=== PATIENT | male | born 1945 | race Caucasian/White ===

== ENCOUNTER 2017-01-21 15:29 | Emergency (ER) | payer MEDICARE ==
[2017-01-21] MEDS ORDERED: oxyCODONE/Acetamin 5/325 MG* TAB PO ONE ×2 (16:10→18:37)
--- NOTE | 2017-01-21 16:49 | RAD ---
Indication: Left lower extremity pain. CT of the lumbar spine was obtained in the axial plane. Sagittal and coronal reconstructed images were obtained. At L5-S1 there is facet arthropathy noted. No central or foraminal stenosis is noted. No focal protrusion is identified. No definite nerve root impingement is noted. At L4-L5 disc space narrowing with degenerative disc disease and vacuum disc phenomenon is noted. Broad-based protrusion is noted. This extends into the posterior lateral aspect of the disc spaces and narrows both foramen. Facet arthropathy is noted. At L3-L4 broad-based protrusion with left posterior lateral disc protrusion narrows the left foramen and likely impinges upon the left exiting nerve root. Moderate facet hypertrophy is noted. At L2-L3 and L1-L2 the disc space appears normal without central or foraminal stenosis. At T12-L1 no disc protrusion is identified. IMPRESSION: L5-S1 facet arthropathy is noted. No central or foraminal stenosis is noted. At L4-L5 vacuum disc phenomenon with broad-based protrusion and facet arthropathy with narrowing of both intervertebral foramen. At L3-L4 broad-based protrusion with a left posterior lateral disc component which appears to impinge upon the left exiting nerve root. Mild facet arthropathy is noted. No fracture of the lumbar spine is present.
[2017-01-21] MEDS ORDERED: predniSONE TAB* 20 MG PO ONE (18:37)
[2017-01-21 19:07] VITALS: BP 189/79
--- NOTE | 2017-01-21 21:34 | ED ---
Francisco Javier Field Alok, scribed for Oli Betancourt MD on 01/21/17 at 1629 . Back Pain - HPI Summary HPI Summary: 71M presents to the ED with left flank pain radiating to the back. Pt states that this back pain which has been ongoing for the past few weeks, worsening today while in the [place]. Pt states this back pain worsens when standing or ambulating and improves in a seated position. Pt has been taking ibuprofen to manage pain. Pt also notes lower back numbness and lower extremity weakness described as fatigue. Pt denies urinary symptoms and states his BM have been normal. PMHx includes DM and chronic upper back pain different from present lower back/flank pain. Pt drinks ETOH. - History of Current Complaint Chief Complaint: EDFlankPain Stated Complaint: BACK PAIN Time Seen by Provider: 01/21/17 15:52 Hx Obtained From: Patient Onset/Duration: Lasting Weeks, Still Present Onset/Duration: Started Weeks Ago, Atraumatic, Still Present, Worse Since - Today Timing: Constant Back Pain Location: Is Discrete @ - left flank, Radiates To - back Severity Initially: Moderate Severity Currently: Moderate Pain Intensity: 10 Pain Scale Used: 0-10 Numeric Aggravating Symptom(s): Movement, Walking Alleviating Symptom(s): Position, OTC Meds - ibuprofen Associated Signs And Symptoms: Positive: Weakness, Numbness, Flank Pain. Negative: Bladder Incontinence, Bowel Incontinence - Allergies/Home Medications Allergies/Adverse Reactions: Allergies Allergy/AdvReac Type Severity Reaction Status Date / Time No Known Allergies Allergy Verified 03/17/13 05:24 PMH/Surg Hx/FS Hx/Imm Hx Endocrine/Hematology History: Reports: Hx Diabetes Infectious Disease History: No Infectious Disease History: Denies: Traveled Outside the [place] in Last 30 Days - Family History Known Family History: Negative: Cardiac Disease, Hypertension, Diabetes - Social History Occupation: Employed Full-time Lives: With Family Alcohol Use: Daily Alcohol Amount: 4 mixed drinks/day Substance Use Type: Reports: None Smoking Status (MU): Never Smoked Tobacco Review of Systems Negative: Fever Positive: Other - Negative: Constipation. Negative: Diarrhea Positive: no symptoms reported - urinary, flank pain Positive: Other - back pain Positive: Weakness All Other Systems Reviewed And Are Negative: Yes Physical Exam Triage Information Reviewed: Yes Vital Signs On Initial Exam: Initial Vitals Temp Pulse Resp BP Pulse Ox 98.9 F 101 20 195/103 95 01/21/17 15:32 01/21/17 15:32 01/21/17 15:32 01/21/17 15:32 01/21/17 15:32 Vital Signs Reviewed: Yes Appearance: Positive: Well-Appearing, No Pain Distress Skin: Positive: Warm, Skin Color Reflects Adequate Perfusion, Dry Head/Face: Positive: Normal Head/Face Inspection Eyes: Positive: Normal ENT: Positive: Normal ENT inspection Neck: Positive: Supple, Nontender Respiratory/Lung Sounds: Positive: Clear to Auscultation, Breath Sounds Present Cardiovascular: Positive: RRR Abdomen Description: Positive: Nontender, Soft Bowel Sounds: Positive: Present Musculoskeletal: Positive: Other - Tender left lumbar area Neurological: Positive: Normal Psychiatric: Positive: Normal, Affect/Mood Appropriate - [place] Coma Scale Coma Scale Total: 15 Diagnostics - Vital Signs Vital Signs Temp Pulse Resp BP Pulse Ox 01/21/17 16:00 93 19 96 01/21/17 15:52 94 20 97 01/21/17 15:50 190/87 01/21/17 15:32 98.9 F 101 20 195/103 95 - Laboratory Lab Statement: Any lab studies that have been ordered have been reviewed, and results considered in the medical decision making process. - CT Lumbar Spine CT CT Interpretation: Positive (See Comments) - IMPRESSION: L5-S1 facet arthropathy is noted. No central or foraminal stenosis is noted. At L4-L5 vacuum disc phenomenon with broad-based protrusion and facet arthropathy with narrowing of both intervertebral foramen. At L3-L4 broad-based protrusion with a left posterior lateral disc component which appears to impinge upon the left exiting nerve root. Mild facet arthropathy is noted. No fracture of the lumbar spine is present. CT Interpretation Completed By: Radiologist Back Pain Course/Dx - Course Course Of Treatment: Mr. Bishop has had problem with his bsck chronically but in the last couple of weeks and especially today it has gotten much worse. He has sciatic signs and symptoms on the left and a CT shows disc disease. He is urinating and moving his bowels OK, his legs are strong and he got a lot of relief from pain meds here. I will treat him with a medrol dose pack and percocet and refer him for F/U. - Diagnoses Provider Diagnoses: Sciatica, Lumbar disc herniation Discharge - Discharge Plan Condition: Stable Disposition: HOME Prescriptions: Methylprednisolone [Medrol Dosepak 4 MG*] 4 mg PO .SEE MAXIMO INSTRUCTION #1 tab oxyCODONE/Acetamin 5/325 MG* [Percocet 5/325 TAB*] 1 tab PO Q6H PRN #20 tab MDD 4 PRN Reason: Pain Patient Education Materials: Lumbar Disc Herniation (ED) Referrals: Subha Win, [employer]SEM[employer]ER [Primary Care Provider] - The documentation as recorded by the Francisco Javier mendoza Alok accurately reflects the service I personally performed and the decisions made by , Oli Betancourt MD.
== END 2017-01-21 19:07 | disposition home or self-care (01) ==
LOC: ED 15:29
DX: M54.30 Sciatica, unspecified side (principal); M51.26 Other intervertebral disc displacement, lumbar region; R10.84 Generalized abdominal pain; R53.1 Weakness
CPT/HCPCS: 72131; 99283; A9270-GY; J7512

== ENCOUNTER 2017-01-31 15:25 | Inpatient (IN) | payer MEDICARE ==
[2017-01-31] MEDS ORDERED: Lidocaine 1%* 5 ML VIAL ONE (17:05)
[2017-01-31] MEDS ORDERED: Lidocaine 1% INJ* 10 MG/ML 30 ML SDV ONE (17:06)
[2017-01-31] MEDS ORDERED: Tetan/Diph/Pertus SYR(Tdap)* 0.5 ML SYR(BOOSTRIX) use SYR IM ONE (18:53)
[2017-01-31] MEDS ORDERED: metFORMIN* 500 MG TAB PO ONE (18:54)
[2017-01-31] MEDS ORDERED: glipiZIDE TAB* 5 MG PO ONE (18:54)
--- NOTE | 2017-01-31 19:03 | ED ---
Elan Field Benjamin, scribed for Oli Betancourt MD on 01/31/17 at 1617 . Psychiatric Complaint - HPI Summary HPI Summary: 71yo male BIBA after a suicidal attempt. Pt cut both of his wrists and forearms multiple times with a bar manager knife. Bleeding is controlled when seen. Pt is right handed. Last tetanus shot date is unknown. Fingers on both hands have full ROM intact. Pt denies prior attempts. - History Of Current Complaint Chief Complaint: EDMentalHealth Time Seen by Provider: 01/31/17 15:47 Hx Obtained From: Patient Onset/Duration: Sudden Onset, Lasting Minutes, Resolved Timing: Minutes Severity Initially: Moderate Severity Currently: Moderate Character: Depressed Aggravating Factor(s): Recent Stress Alleviating Factor(s): Nothing Associated Signs And Symptoms: Positive: Negative Has Suicidal: Reports: Thoughts, With A Plan - cutting wrists - Allergies/Home Medications Allergies/Adverse Reactions: Allergies Allergy/AdvReac Type Severity Reaction Status Date / Time No Known Allergies Allergy Verified 03/17/13 05:24 Home Medications: Home Medications Carisoprodol TAB* [Soma TAB*] 350 mg PO Q6H PRN 01/31/17 [History Confirmed ] glipiZIDE TAB* [Glucotrol TAB*] 5 mg PO BID 01/31/17 [History Confirmed 01/31/17 ] metFORMIN* [Glucophage 500 MG TAB *] 1,000 mg PO BID 01/31/17 [History Confirmed 01/31/17] PMH/Surg Hx/FS Hx/Imm Hx Endocrine/Hematology History: Reports: Hx Diabetes Infectious Disease History: No Infectious Disease History: Denies: Traveled Outside the US in Last 30 Days - Family History Known Family History: Negative: Cardiac Disease, Hypertension, Diabetes - Social History Occupation: Employed Full-time Lives: With Family Alcohol Use: Daily Alcohol Amount: 4 mixed drinks/day Substance Use Type: Reports: None Smoking Status (MU): Never Smoked Tobacco Review of Systems Constitutional: Negative Eyes: Negative ENT: Negative Cardiovascular: Negative Respiratory: Negative Gastrointestinal: Negative Genitourinary: Negative Musculoskeletal: Negative Positive: Other - multiple lacerations in bilateral wrists and forearms. Neurological: Negative Positive: Depressed, Other - SI with plan All Other Systems Reviewed And Are Negative: Yes Physical Exam Triage Information Reviewed: Yes Vital Signs On Initial Exam: Initial Vitals Temp Pulse Resp BP Pulse Ox 98.5 F 100 17 200/93 97 01/31/17 15:28 01/31/17 15:28 01/31/17 15:28 01/31/17 15:28 01/31/17 15:28 Vital Signs Reviewed: Yes Appearance: Positive: Well-Appearing, No Pain Distress, Well-Nourished Skin: Positive: Warm, Skin Color Reflects Adequate Perfusion, Dry, Other - Multiple lacerations to the bilateral volar wrists. One to the dorsum of both hands. Head/Face: Positive: Normal Head/Face Inspection Eyes: Positive: Normal ENT: Positive: Normal ENT inspection Neck: Positive: Supple, Nontender Respiratory/Lung Sounds: Positive: Clear to Auscultation, Breath Sounds Present Cardiovascular: Positive: RRR Abdomen Description: Positive: Nontender, Soft Bowel Sounds: Positive: Present Musculoskeletal: Positive: Normal, Strength/ROM Intact Neurological: Positive: Sensory/Motor Intact, Alert, Oriented to Person Place, Time, CN Intact II-III, NV Bundle Intact Distally - Neurovascular motor intact. - [place] Coma Scale Coma Scale Total: 15 Procedures - Laceration/Wound Repair 1 Location: upper extremity Description: Linear Anesthesia: Local, 2.0%, Lido Length, Depth and Shape: He has multiple lacerations of both volar wrists totaling about 40 cms. They are all through to the sub Q tissue but not deeper. Betadine Prep?: Yes Irrigated w/ Saline (ccs): 500 Laceration/Wound Explored: clean Closure: Single Layer Suture Type: Nylon - 5.0 a mix of verticle mattress and simple interrupted Number of Sutures: 41 Layer Closure?: No Diagnostics - Vital Signs Vital Signs Temp Pulse Resp BP Pulse Ox 01/31/17 15:33 17 01/31/17 15:31 200/93 01/31/17 15:28 98.5 F 100 17 200/93 97 - Laboratory Lab Statement: Any lab studies that have been ordered have been reviewed, and results considered in the medical decision making process. - EKG 1556 Cardiac Rate: Tachycardia - 102bpm EKG Rhythm: Sinus Tachycardia ST Segment: Normal Ectopy: None Course/Dx - Course Course Of Treatment: Mr. Bishop presented after cutting his wrists with a bar manager knife. He admits that something bad happened today but won't say what. His wounds were repaired and he is awaiting MHE. - Differential Dx/Clinical Impression Provider Diagnosis: Laceration of wrist, left, Laceration of wrist, right, Situational depression Discharge - Discharge Plan Condition: Stable Disposition: OTHER Discharge Disposition Comment: Signed out at change of shift The documentation as recorded by the Elan mendoza Benjamin accurately reflects the service I personally performed and the decisions made by me, Oli Betancourt MD.
[2017-01-31 19:26] LABS: Hematocrit 46 % (42-52); Hemoglobin 15.3 g/dl (14.0-18.0); Mean Corpuscular HGB Conc 33 g/dl (31-36); Mean Corpuscular Hemoglobin 31 pg (27-31); Mean Corpuscular Volume 92 fL (80-94); Mean Platelet Volume 7 um3 (7.4-10.4); Red Blood Count 4.99 10^6/ul (4.0-5.4); Red Cell Distribution Width 13 % (10.5-15); White Blood Count 11.7 10^3/ul (3.5-10.8)
[2017-01-31] MEDS ORDERED: LORazepam TAB(*) 1 MG PO ONE (19:38)
[2017-01-31] MEDS ORDERED: LORazepam TAB(*) 1 MG ONE ×2 (19:39→22:35)
[2017-01-31 19:43] LABS: ALT 22 U/L (7-52); AST 11 U/L (13-39); Albumin 3.7 g/dL (3.2-5.2); Alkaline Phosphatase 54 U/L (34-104); Anion Gap 7 mmol/L (2-11); BUN/Creatinine Ratio 20.6 (8-20); Blood Urea Nitrogen 14 mg/dL (6-24); CO2 Carbon Dioxide 26 mmol/L (22-32); Calcium 9.4 mg/dL (8.6-10.3); Chloride 99 mmol/L (101-111); EGFR African American 148.7 (>60); EGFR Non-African American 115.6 (>60); Globulin 3.1 g/dL (2-4); Glucose 196 mg/dL (70-100); Potassium 3.8 mmol/L (3.5-5.0); Sodium 132 mmol/L (133-145); Total Protein 6.8 g/dL (6.4-8.9)
[2017-01-31 20:49] LABS: Acetaminophen < 15 mcg/mL; Alcohol < 10 mg/dL (<10); Salicylate < 2.50 mg/dL (<30)
[2017-01-31 20:58] LABS: TSH (Thyroid Stimulating Horm) 0.84 mcIU/mL (0.34-5.60)
[2017-01-31] MEDS ORDERED: Ibuprofen TAB* 600 MG PO ONE (21:13)
[2017-01-31 21:37] LABS: Urine Bilirubin 2+ (Negative); Urine Glucose 3+(>=500 mg/dL) (Negative); Urine Nitrite Negative (Negative)
[2017-01-31 21:57] LABS: Benzodiazepine Urine Screen None Detected (None Detect)
[2017-01-31] MEDS ORDERED: diPHENhydraMINE IV* 50 MG/ML 1 ml VIAL (BENADRYL) IM ONE (22:00)
[2017-01-31] MEDS ORDERED: Haloperidol INJ IV/IM* 5 MG/ML AMP IM ONE (22:00)
[2017-01-31] MEDS ORDERED: LORazepam INJ* 2 MG/ML 1 ML VIAL IM ONE (22:00)
[2017-01-31] MEDS ORDERED: oxyCODONE/Acetamin 5/325 MG* TAB ONE (22:35)
[2017-01-31] MEDS ORDERED: Carisoprodol TAB* 350 MG ONE (22:36)
[2017-01-31] MEDS ORDERED: Nicotine GUM* 2 MG PO PRN (22:37)
[2017-01-31] MEDS ORDERED: Mouth Piece, Nicotine* 1 EACH CARTRIDGE INH SCH (22:37)
[2017-01-31] MEDS ORDERED: Al Hydrox/Mg Hydrox/Simet LIQ* 30 ML UDC PO PRN (22:37)
[2017-01-31] MEDS ORDERED: Nicotine Inhaler* 10 MG AMP INH PRN (22:37)
[2017-01-31] MEDS ORDERED: Acetaminophen TAB* 650 MG PO Q4P PAIN PO PRN (23:00)
[2017-01-31] MEDS ORDERED: Thiamine IV* 100 MG IM X 1 ON ADMISSION IM ONE (23:00)
[2017-01-31] MEDS ORDERED: LORazepam PO 0-6 for WAM protocol PO SCH (23:00)
[2017-01-31] MEDS ORDERED: Al Hydrox/Mg Hydrox/Simet LIQ* 30 ML Q2P GAST DISTRESS PO PRN (23:00)
[2017-01-31] MEDS ORDERED: LORazepam IM 0-6 mg for WAM protocol IM SCH (23:00)
--- NOTE | 2017-02-01 05:00 | ED ---
Francisco Javier Field Alok, scribed for Srini Ramirez MD on 01/31/17 at 2113 . Progress - Progress Note Progress Note: Patient medically clear for MHU evaluation @ 2111 Patient has historically had an elevated blood pressure since 2012 and is on no medications for it. - Consult/PCP Time Called: 20:53 Course/Dx - Course Course Of Treatment: Patient was signed out by Dr. Betancourt at shift change. Dr. Hammond notes: "Mr. Bishop presented after cutting his wrists with a fixed capital clerk knife. He admits that something bad happened today but won't say what. His wounds were repaired and he is awaiting MHE". Patient medically clear for MHU evaluation @ 2111. Patient has historically had an elevated blood pressure since 2012 and is on no medications for it. - Diagnoses Provider Diagnoses: Laceration of wrist, left, Laceration of wrist, right, Situational depression The documentation as recorded by the marieibeFrancisco Javier Alok accurately reflects the service I personally performed and the decisions made by me, Srini Ramirez MD.
[2017-02-01] MEDS: Vitamin THERAPEUTIC TAB PO SCH (08:45)
[2017-02-01] MEDS: Folic Acid TAB* 1 MG DAILY PO SCH (08:45)
[2017-02-01] MEDS: metFORMIN* 1,000 MG TAB PO SCH ×2 (08:45→16:58)
[2017-02-01] MEDS: glipiZIDE TAB* 5 MG PO SCH ×2 (08:45→19:54)
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
[2017-02-01] MEDS: oxyCODONE/Acetamin 5/325 MG* TAB PO PRN (19:53)
[2017-02-01] MEDS: Carisoprodol TAB* 350 MG PO PRN (19:55)
[2017-02-01] MEDS ORDERED: LORazepam TAB(*) 1 MG PO ONE (21:15)
[2017-02-02] MEDS: Vitamin THERAPEUTIC TAB PO SCH (08:48)
[2017-02-02] MEDS: Folic Acid TAB* 1 MG DAILY PO SCH (08:48)
[2017-02-02] MEDS: glipiZIDE TAB* 5 MG PO SCH ×2 (08:48→21:38)
[2017-02-02] MEDS: metFORMIN* 1,000 MG TAB PO SCH ×2 (08:48→16:55)
[2017-02-02] MEDS: oxyCODONE/Acetamin 5/325 MG* TAB PO PRN ×3 (08:51→23:25)
--- NOTE | 2017-02-02 16:03 | PN ---
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 "Every day I spend in here gets me deeper in debt." He believes that he is still together with his girlfriend, Teresa , and tells me that he last saw her "4 or 5 days ago," when they just saw each other yesterday here on the [facility]. He has obvious deficits in attention and delayed recall. He is mildly irritable, telling me that he did not like the music being played by the visiting harp player last night. "If nobody had been looking I would have broken her hands." Despite his episodes of confusion and tachycardia, he declines offered lorazepam. Objective - Appearance Appearance: Well Developed/Nourished Dysmorphic Features: No Hygiene: Normal Grooming: Fairly Well Kept - Behavior Psychomotor Activities: Normal Exhibits Abnormal Movement: No - Attitude and Relatedness Attitude and Relatedness: Irritable Eye Contact: Fair - Speech Quality: Unpressured Latencies: Normal Quantity: Appropriate - Mood Patient's Decription of Mood: "Fine" - Affect Observed Affect: Constricted Affect Consistent with: Dysphoria - Thought Process Patient's Thought Process: Circumstantial Thought Content: No Passive Wish, No Suicidal Planning, No Homicidal Ideation, No Paranoid Ideation - Sensorium Experiencing Hallucinations: No, Sensorium is Clear Type of Hallucinations: Visual: No, Auditory: No, Command: No - Level of Consciousness Level of Consciousness: Alert Orientation: Yes Intact, Yes Orientated to Time, Yes Orientated to Place, Yes Orientated to Person - Impulse Control Impulse Control: Poor - Insight and Judgement Insight and Judgement: Impaired - Group Participation Particating in Group Activities: Yes - Medication Management Medication Management Adherence: Yes Assessment - Assessment Merits Inpatient Hospitalization: For Immediate Safety, For Stabilization Inpatient DSM-IV Dx: MDD, single episode, severe without psychotic features Clinical Impression: 71 y.o. , white male with a history of chronic alcohol misuse brought in by police on legal status after cutting himself on both forearms in a suicide attempt and requiring 41 sutures. His girlfriend reports that he continues to make statements to the effect that he will complete the suicide following discharge from the hospital. Plan - Plan Treatment Plan: Name: CORTEZ GAYTAN Birthdate: 1945 [id number] The patient is declining antidepressant therapy and demanding d/c. He is unaware that his girlfriend intends to end the relationship and kick him out of her house in [place], rendering him homeless. Contact with his family indicates that they cannot accommodate having him move in with them. Continue to offer milieu care on a locked, secured setting. Continued Medication Management: Consider Medication Medications: Current Medications Acetaminophen (Tylenol Tab*) 650 mg PO Q4H PRN PRN Reason: PAIN or TEMP > 101 F Al Hydrox/Mg Hydrox/Simethicone (Maalox Plus*) 30 ml PO Q2H PRN PRN Reason: PRN GASTRIC DISTRESS Carisoprodol (Soma Tab*) 350 mg PO Q6H PRN PRN Reason: PAIN Last Admin: 02/01/17 19:55 Dose: 350 mg Folic Acid (Folvite Tab*) 1 mg PO DAILY [facility] Last Admin: 02/02/17 08:48 Dose: 1 mg Glipizide (Glucotrol Tab*) 5 mg PO BID [facility] Last Admin: 02/02/17 08:48 Dose: 5 mg Metformin HCl (Glucophage*) 1,000 mg PO 0800,1700 [facility] Last Admin: 02/02/17 08:48 Dose: 1,000 mg Multivitamins (Theragran Tab*) 1 tab PO DAILY [facility] Last Admin: 02/02/17 08:48 Dose: 1 tab Oxycodone/Acetaminophen (Percocet 5/325 Tab*) 1 tab PO Q6H PRN PRN Reason: PAIN Last Admin: 02/02/17 08:51 Dose: 1 tab - Discharge Plan Discharge Plan: Inpatient Hospitalization
[2017-02-02] MEDS: Acetaminophen TAB* 325 MG PO PRN (22:16)
[2017-02-03] MEDS: Carisoprodol TAB* 350 MG PO PRN ×3 (03:06→21:55)
[2017-02-03] MEDS: Acetaminophen TAB* 325 MG PO PRN ×2 (03:07→18:21)
[2017-02-03] MEDS: Vitamin THERAPEUTIC TAB PO SCH (08:27)
[2017-02-03] MEDS: Folic Acid TAB* 1 MG DAILY PO SCH (08:27)
[2017-02-03] MEDS: metFORMIN* 1,000 MG TAB PO SCH ×2 (08:27→17:05)
[2017-02-03] MEDS: glipiZIDE TAB* 5 MG PO SCH ×2 (08:27→17:05)
[2017-02-03] MEDS: oxyCODONE/Acetamin 5/325 MG* TAB PO PRN ×3 (08:28→21:27)
--- NOTE | 2017-02-03 17:43 | PN ---
Subjective - Subjective Subjective: Dale endorses reduced distress level, improving sleep and mood and absence of suicidal ideation. He agrees reluctantly to a trial of mirtazapine after hearing of the indications, risks, benefits and alternatives. He reports good visit with girlfriend, notes that she may be embarrassed that "her boyfriend is in the psych booker." Per staff, he is visible in the milieu and adherent to routines. Objective - Appearance Appearance: Healthy Appearing Dysmorphic Features: No Hygiene: Normal Grooming: Fairly Well Kept - Behavior Psychomotor Activities: Normal Exhibits Abnormal Movement: No - Attitude and Relatedness Attitude and Relatedness: Superficially Cooperative Eye Contact: Fair - Speech Quality: Unpressured Latencies: Normal Quantity: Appropriate - Mood Patient's Decription of Mood: better - Affect Observed Affect: Constricted Affect Consistent with: Dysphoria - Thought Process Patient's Thought Process: Coherent, Impoverished Thought Content: No Passive Wish, No Suicidal Planning, No Homicidal Ideation, No Paranoid Ideation - Sensorium Experiencing Hallucinations: No, Sensorium is Clear - Level of Consciousness Level of Consciousness: Alert Orientation: Yes Intact - Impulse Control Impulse Control: Intact - Insight and Judgement Insight and Judgement: Poor - Group Participation Particating in Group Activities: Yes - Medication Management Medication Management Adherence: Yes Assessment - Assessment Merits Inpatient Hospitalization: Consolidate Improvements, For Discharge Planning Inpatient DSM-IV Dx: MDD, single episode, severe without psychotic features Clinical Impression: Stabilizing in the structured setting, with continued poor insight, agreeable to trial of Remeron, he needs continued admission for stabilization. Plan - Plan Treatment Plan: Name: CORTEZ GAYTAN Birthdate: 1945 [id number] Medications: Current Medications Acetaminophen (Tylenol Tab*) 650 mg PO Q4H PRN PRN Reason: PAIN or TEMP > 101 F Last Admin: 02/03/17 03:07 Dose: 650 mg Al Hydrox/Mg Hydrox/Simethicone (Maalox Plus*) 30 ml PO Q2H PRN PRN Reason: PRN GASTRIC DISTRESS Carisoprodol (Soma Tab*) 350 mg PO Q6H PRN PRN Reason: PAIN Last Admin: 02/03/17 15:53 Dose: 350 mg Folic Acid (Folvite Tab*) 1 mg PO DAILY [facility] Last Admin: 02/03/17 08:27 Dose: 1 mg Glipizide (Glucotrol Tab*) 5 mg PO 0900,1700 [facility] Last Admin: 02/03/17 17:05 Dose: 5 mg Metformin HCl (Glucophage*) 1,000 mg PO 0800,1700 [facility] Last Admin: 02/03/17 17:05 Dose: 1,000 mg Multivitamins (Theragran Tab*) 1 tab PO DAILY [facility] Last Admin: 02/03/17 08:27 Dose: 1 tab Oxycodone/Acetaminophen (Percocet 5/325 Tab*) 1 tab PO Q6H PRN PRN Reason: PAIN Last Admin: 02/03/17 15:11 Dose: 1 tab - Discharge Plan Discharge Plan: Outpatient Follow Up Outpatient Program: [facility]
[2017-02-04] MEDS: Vitamin THERAPEUTIC TAB PO SCH (08:02)
[2017-02-04] MEDS: Folic Acid TAB* 1 MG DAILY PO SCH (08:02)
[2017-02-04] MEDS: glipiZIDE TAB* 5 MG PO SCH ×2 (08:02→16:13)
[2017-02-04] MEDS: metFORMIN* 1,000 MG TAB PO SCH ×2 (08:02→16:13)
[2017-02-04] MEDS: oxyCODONE/Acetamin 5/325 MG* TAB PO PRN ×3 (08:04→19:16)
[2017-02-04] MEDS: Carisoprodol TAB* 350 MG PO PRN ×2 (14:07→19:16)
[2017-02-04] MEDS: Acetaminophen TAB* 325 MG PO PRN ×2 (16:13→21:10)
[2017-02-04] MEDS: Mirtazapine TAB* 15 MG PO PRN (21:10)
[2017-02-05] MEDS: Carisoprodol TAB* 350 MG PO PRN ×4 (01:48→23:48)
[2017-02-05] MEDS: oxyCODONE/Acetamin 5/325 MG* TAB PO PRN ×4 (01:49→23:49)
[2017-02-05] MEDS: glipiZIDE TAB* 5 MG PO SCH ×2 (08:07→16:50)
[2017-02-05] MEDS: Folic Acid TAB* 1 MG DAILY PO SCH (08:07)
[2017-02-05] MEDS: Vitamin THERAPEUTIC TAB PO SCH (08:07)
[2017-02-05] MEDS: metFORMIN* 1,000 MG TAB PO SCH ×2 (08:07→16:50)
--- NOTE | 2017-02-05 12:41 | PN ---
Subjective - Subjective Service Type: [id number] Hosp care 15 min low complexity Subjective: Prior to speaking with Dale this morning I fielded a phone call from his now ex- girlfriend, Teresa Zapata ([phone]). She states that she officially broke up with him over the weekend and is now packing up his belongings to bring them to his nephew, Leana in [place], [place]. She further reports that she no longer wants to be the main source of support and is referring us to the patient's sister, Karen. "It's over and I've been told by people supporting me that I should get a restraining order to keep him away from me and my property. I don't think he would do anything to hurt me, but then again, I didn't think he would ever do anything to hurt himself and look where he is now!" She asks for assurances that I will give her 3 days notice before his discharge, which I cannot commit to. Later, Dale is seen along with DONOVAN Paul. He has made suicidal statements to staff that he would walk in front of a car after discharge as recently as this morning. Asked for clarification, he responds "I have nothing. It all hit me yesterday. 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 Suicide would be the easy way out. It be over...the best thing for everyone." I ask if he's contacted his sister or nephew but he reports that his phone isn't working so he can't get their numbers. He is estranged from his children and they are not able to support him. I discuss the possibility and potential utility of an antidepressant medication but he declines this. "I' m on enough medication already." Objective - Appearance Appearance: Well Developed/Nourished Dysmorphic Features: No Hygiene: Normal Grooming: Fairly Well Kept - Behavior Psychomotor Activities: Normal Exhibits Abnormal Movement: No - Attitude and Relatedness Attitude and Relatedness: Cooperative Eye Contact: Fair - Speech Quality: Unpressured Latencies: Normal Quantity: Appropriate - Mood Patient's Decription of Mood: "Terrible" - Affect Observed Affect: Depressed Affect Consistent with: Dysphoria - Thought Process Patient's Thought Process: Coherent Thought Content: Yes Suicidal Planning, No Passive Wish, No Homicidal Ideation, No Paranoid Ideation - Sensorium Experiencing Hallucinations: No, Sensorium is Clear Type of Hallucinations: Visual: No, Auditory: No, Command: No - Level of Consciousness Level of Consciousness: Alert Orientation: Yes Intact, Yes Orientated to Time, Yes Orientated to Place, Yes Orientated to Person - Impulse Control Impulse Control: Poor - Insight and Judgement Insight and Judgement: Impaired - Group Participation Particating in Group Activities: Yes - Medication Management Medication Management Adherence: Yes Assessment - Assessment Merits Inpatient Hospitalization: For Immediate Safety, For Stabilization Inpatient DSM-IV Dx: MDD, single episode, severe without psychotic features Clinical Impression: 71 y.o. , white male with a history of chronic alcohol misuse brought in by police on legal status after cutting himself on both forearms in a suicide attempt and requiring 41 sutures. His girlfriend reports that he continues to make statements to the effect that he will complete the suicide following discharge from the hospital. Plan - Plan Treatment Plan: Name: CORTEZ GAYTAN Birthdate: 1945 [id number] The patient is declining antidepressant therapy and demanding d/c, despite his homelessness. He continues to endorse suicidal intentions with a plan to jump in front of traffic. His risk profile is high given the following factors: white race, recently single, in financial stress, newly homeless with limited family support. Need collateral contact from his family. Continue to offer milieu care on a locked, secured setting. Continued Medication Management: Consider Medication Medications: Current Medications Acetaminophen (Tylenol Tab*) 650 mg PO Q4H PRN PRN Reason: PAIN or TEMP > 101 F Last Admin: 02/04/17 21:10 Dose: 650 mg Al Hydrox/Mg Hydrox/Simethicone (Maalox Plus*) 30 ml PO Q2H PRN PRN Reason: PRN GASTRIC DISTRESS Carisoprodol (Soma Tab*) 350 mg PO Q6H PRN PRN Reason: PAIN Last Admin: 02/05/17 01:48 Dose: 350 mg Folic Acid (Folvite Tab*) 1 mg PO DAILY [facility] Last Admin: 02/05/17 08:07 Dose: 1 mg Glipizide (Glucotrol Tab*) 5 mg PO 0900,1700 [facility] Last Admin: 07/31/17 08:07 Dose: 5 mg Metformin HCl (Glucophage*) 1,000 mg PO 0800,1700 [facility] Last Admin: 02/05/17 08:07 Dose: 1,000 mg Mirtazapine (Remeron Tab*) 15 mg PO BEDTIME PRN PRN Reason: SLEEP Last Admin: 02/04/17 21:10 Dose: 15 mg Multivitamins (Theragran Tab*) 1 tab PO DAILY [facility] Last Admin: 02/05/17 08:07 Dose: 1 tab Oxycodone/Acetaminophen (Percocet 5/325 Tab*) 1 tab PO Q6H PRN PRN Reason: PAIN Last Admin: 02/05/17 01:49 Dose: 1 tab - Discharge Plan Discharge Plan: Inpatient Hospitalization
[2017-02-05] MEDS: Acetaminophen TAB* 325 MG PO PRN (16:51)
[2017-02-05] MEDS: Mirtazapine TAB* 15 MG PO PRN (22:43)
[2017-02-06] MEDS: Carisoprodol TAB* 350 MG PO PRN ×3 (05:56→20:34)
[2017-02-06] MEDS: oxyCODONE/Acetamin 5/325 MG* TAB PO PRN ×3 (05:56→17:42)
[2017-02-06] MEDS: metFORMIN* 1,000 MG TAB PO SCH ×2 (07:47→17:43)
[2017-02-06] MEDS: glipiZIDE TAB* 5 MG PO SCH ×2 (07:47→17:43)
[2017-02-06] MEDS: Vitamin THERAPEUTIC TAB PO SCH (07:47)
[2017-02-06] MEDS: Folic Acid TAB* 1 MG DAILY PO SCH (07:47)
--- NOTE | 2017-02-06 13:12 | PN ---
MHU: Group Therapy Note - Service Type Service Type: [id number] Group Psychotherapy - Cognitive Behavioral Group Therapy ( CBT):Patient was attentive and participatory in CBT programming this morning, and remained in good behavioral control. Patient expressed positive insights regarding relevant treatment interventions and goals.
--- NOTE | 2017-02-06 14:57 | PN ---
Subjective - Subjective Service Type: [id number] Hosp care 15 min low complexity Subjective: Dale is seen for follow up along with DONOVAN Paul. Today he denies SI and says it was only the shock of his breakup with his longtime girlfriend, Teresa, that made him make those statements over the last several days. He is agreeable with contacting his sister and nephew in an effort to rally social support now that he is homeless and without work. 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 "It' s not legal, but that's how she wanted to do things." Dale repeatedly states that he has no intention of killing himself when he leaves the hospital. He declines the offer of antidepressant therapy and openly wonders if it was the opioid pain relievers he recently started that made him suicidal in the first place. "I don't want any more medications. That I can tell you." Objective - Appearance Appearance: Healthy Appearing Dysmorphic Features: No Hygiene: Normal Grooming: Well Kept - Behavior Psychomotor Activities: Normal Exhibits Abnormal Movement: No - Attitude and Relatedness Attitude and Relatedness: Cooperative Eye Contact: Fair - Speech Quality: Unpressured Latencies: Normal Quantity: Appropriate - Mood Patient's Decription of Mood: "Okay" - Affect Observed Affect: Fair Affect Consistent with: Euthymia - Thought Process Patient's Thought Process: Circumstantial Thought Content: No Passive Wish, No Suicidal Planning, No Homicidal Ideation, No Paranoid Ideation - Sensorium Experiencing Hallucinations: No, Sensorium is Clear Type of Hallucinations: Visual: No, Auditory: No, Command: No - Level of Consciousness Level of Consciousness: Alert Orientation: Yes Intact, Yes Orientated to Time, Yes Orientated to Place, Yes Orientated to Person - Impulse Control Impulse Control: Tenuous - Insight and Judgement Insight and Judgement: Fair - Group Participation Particating in Group Activities: Yes - Medication Management Medication Management Adherence: Partial Assessment - Assessment Merits Inpatient Hospitalization: For Immediate Safety, For Stabilization Inpatient DSM-IV Dx: MDD, single episode, severe without psychotic features Clinical Impression: 71 y.o. , white male with a history of chronic alcohol misuse brought in by police on legal status after cutting himself on both forearms in a suicide attempt and requiring 41 sutures. His girlfriend reports that he continues to make statements to the effect that he will complete the suicide following discharge from the hospital. Plan - Plan Treatment Plan: Name: CORTEZ GAYTAN Birthdate: 1945 [id number] The patient is denying suicidal ideations today and appears more future- oriented. He is agreeable with contacting his family today and has their numbers from the staff. His risk profile remains high given the following factors: white race, recently single, in financial stress, newly homeless with limited family support. Need collateral contact from his family. Continue to offer milieu care on a locked, secured setting. Patient will not entertain idea of antidepressant therapy. Continued Medication Management: Consider Medication Medications: Current Medications Acetaminophen (Tylenol Tab*) 650 mg PO Q4H PRN PRN Reason: PAIN or TEMP > 101 F Last Admin: 02/05/17 16:51 Dose: 650 mg Al Hydrox/Mg Hydrox/Simethicone (Maalox Plus*) 30 ml PO Q2H PRN PRN Reason: PRN GASTRIC DISTRESS Carisoprodol (Soma Tab*) 350 mg PO Q6H PRN PRN Reason: PAIN Last Admin: 02/06/17 11:59 Dose: 350 mg Folic Acid (Folvite Tab*) 1 mg PO DAILY [facility] Last Admin: 02/06/17 07:47 Dose: 1 mg Glipizide (Glucotrol Tab*) 5 mg PO 0900,1700 [facility] Last Admin: 02/06/17 07:47 Dose: 5 mg Metformin HCl (Glucophage*) 1,000 mg PO 0800,1700 [facility] Last Admin: 02/06/17 07:47 Dose: 1,000 mg Mirtazapine (Remeron Tab*) 15 mg PO BEDTIME PRN PRN Reason: SLEEP Last Admin: 02/05/17 22:43 Dose: 15 mg Multivitamins (Theragran Tab*) 1 tab PO DAILY [facility] Last Admin: 02/06/17 07:47 Dose: 1 tab Oxycodone/Acetaminophen (Percocet 5/325 Tab*) 1 tab PO Q6H PRN PRN Reason: PAIN Last Admin: 02/06/17 11:59 Dose: 1 tab - Discharge Plan Discharge Plan: Inpatient Hospitalization
[2017-02-06] MEDS: Acetaminophen TAB* 325 MG PO PRN (15:26)
[2017-02-06] MEDS: Mirtazapine TAB* 15 MG PO SCH (20:35)
[2017-02-07] MEDS: oxyCODONE/Acetamin 5/325 MG* TAB PO PRN ×4 (00:13→20:30)
[2017-02-07] MEDS: Folic Acid TAB* 1 MG DAILY PO SCH (07:43)
[2017-02-07] MEDS: glipiZIDE TAB* 5 MG PO SCH ×2 (07:44→17:12)
[2017-02-07] MEDS: Carisoprodol TAB* 350 MG PO PRN ×3 (07:44→20:30)
[2017-02-07] MEDS: metFORMIN* 1,000 MG TAB PO SCH ×2 (07:44→17:12)
[2017-02-07] MEDS: Vitamin THERAPEUTIC TAB PO SCH (07:44)
[2017-02-07] MEDS: Acetaminophen TAB* 325 MG PO PRN ×2 (12:30→17:25)
--- NOTE | 2017-02-07 13:10 | PN ---
MHU: Group Therapy Note - Service Type Service Type: [id number] Group Psychotherapy - Cognitive Behavioral Group Therapy ( CBT):Patient was attentive and participatory in CBT programming this morning, and remained in good behavioral control. Patient expressed positive insights regarding relevant treatment interventions and goals.
--- NOTE | 2017-02-07 14:36 | PN ---
Subjective - Subjective Service Type: [id number] Hosp care 15 min low complexity Subjective: The patient appears to be in good spirits. He has been trying to reach his nephew, Isac Wilkes, but was not yet successful. He reports that his phone has been shut off from non-payment and blames this on his ex-girlfriend, Teresa. The patient denies SI and his affect is improving. It has come to this clinician's attention that Mr. Gaytan was, in fact, started on antidepressant therapy over the weekend by Dr. Etienne Ballard, who was the weekend on-call provider. The patient denies side effects from this medication. Objective - Appearance Appearance: Well Developed/Nourished Dysmorphic Features: No Hygiene: Normal - Behavior Psychomotor Activities: Normal Exhibits Abnormal Movement: No - Attitude and Relatedness Attitude and Relatedness: Cooperative Eye Contact: Fair - Speech Quality: Unpressured Latencies: Normal Quantity: Appropriate - Mood Patient's Decription of Mood: "Good" - Affect Observed Affect: Fair Affect Consistent with: Euthymia - Thought Process Patient's Thought Process: Coherent Thought Content: No Passive Wish, No Suicidal Planning, No Homicidal Ideation, No Paranoid Ideation - Sensorium Experiencing Hallucinations: No, Sensorium is Clear Type of Hallucinations: Visual: No, Auditory: No, Command: No - Level of Consciousness Level of Consciousness: Alert Orientation: Yes Intact, Yes Orientated to Time, Yes Orientated to Place, Yes Orientated to Person - Impulse Control Impulse Control: Tenuous - Insight and Judgement Insight and Judgement: Fair - Group Participation Particating in Group Activities: Yes - Medication Management Medication Management Adherence: Yes Assessment - Assessment Merits Inpatient Hospitalization: For Immediate Safety, For Stabilization Inpatient DSM-IV Dx: MDD, single episode, severe without psychotic features Clinical Impression: 71 y.o. , white male with a history of chronic alcohol misuse brought in by police on 9 legal status after cutting himself on both forearms in a suicide attempt and requiring 41 sutures. His girlfriend reports that he continues to make statements to the effect that he will complete the suicide following discharge from the hospital. Plan - Plan Treatment Plan: Name: CORTEZ GAYTAN Birthdate: 1945 [id number] The patient appears to be improving. He is denying suicidal ideations and appears more future-oriented. He is agreeable with contacting his family today and has their numbers from the staff. Continue mirtazapine 15mg PO qhs. Continue to offer milieu care on a locked, secured setting. Continued Medication Management: Start Medication Medications: Current Medications Acetaminophen (Tylenol Tab*) 650 mg PO Q4H PRN PRN Reason: PAIN or TEMP > 101 F Last Admin: 02/07/17 12:30 Dose: 650 mg Al Hydrox/Mg Hydrox/Simethicone (Maalox Plus*) 30 ml PO Q2H PRN PRN Reason: PRN GASTRIC DISTRESS Carisoprodol (Soma Tab*) 350 mg PO Q6H PRN PRN Reason: PAIN Last Admin: 02/07/17 14:13 Dose: 350 mg Folic Acid (Folvite Tab*) 1 mg PO DAILY [facility] Last Admin: 02/07/17 07:43 Dose: 1 mg Glipizide (Glucotrol Tab*) 5 mg PO 0900,1700 [facility] Last Admin: 02/07/17 07:44 Dose: 5 mg Metformin HCl (Glucophage*) 1,000 mg PO 0800,1700 [facility] Last Admin: 02/07/17 07:44 Dose: 1,000 mg Mirtazapine (Remeron Tab*) 15 mg PO BEDTIME [facility] Last Admin: 02/06/17 20:35 Dose: 15 mg Multivitamins (Theragran Tab*) 1 tab PO DAILY [facility] Last Admin: 02/07/17 07:44 Dose: 1 tab Oxycodone/Acetaminophen (Percocet 5/325 Tab*) 1 tab PO Q6H PRN PRN Reason: PAIN Last Admin: 02/07/17 14:13 Dose: 1 tab - Discharge Plan Discharge Plan: Inpatient Hospitalization
[2017-02-07] MEDS: Mirtazapine TAB* 15 MG PO SCH (21:25)
[2017-02-08] MEDS: Vitamin THERAPEUTIC TAB PO SCH (08:18)
[2017-02-08] MEDS: glipiZIDE TAB* 5 MG PO SCH ×2 (08:18→17:17)
[2017-02-08] MEDS: metFORMIN* 1,000 MG TAB PO SCH ×2 (08:18→17:17)
[2017-02-08] MEDS: oxyCODONE/Acetamin 5/325 MG* TAB PO PRN ×3 (08:19→20:02)
[2017-02-08] MEDS: Folic Acid TAB* 1 MG DAILY PO SCH (08:19)
[2017-02-08] MEDS: Carisoprodol TAB* 350 MG PO PRN ×3 (08:20→20:02)
--- NOTE | 2017-02-08 11:53 | PN ---
MHU: Group Therapy Note - Service Type Service Type: [id number] Group Psychotherapy - Cognitive Behavioral Group Therapy ( CBT):Patient was attentive and participatory in CBT programming this morning, and remained in good behavioral control. Patient expressed positive insights regarding relevant treatment interventions and goals.
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
[2017-02-08] MEDS: Acetaminophen TAB* 325 MG PO PRN (13:24)
--- NOTE | 2017-02-08 15:47 | RAD ---
Indication: Altered mental status. History of chronic alcohol abuse. Comparison: No relevant prior exams available [place] [facility] [place] [place]. Technique: fypio Lonerock 1.5 Bel CL447H with GEM suite. MRI brain without contrast. Report: Diffusion series is negative for acute or subacute ischemia. Susceptibility series is negative for stigmata of hemosiderin deposition to indicate previous hemorrhage. Mild prominence of the cerebral sulci and proportional enlargement of the ventricles. Unremarkable basal cisterns. Normal patterns of signal intensity throughout the cerebrum and posterior fossa. No intra or extra-axial lesions or fluid collections evident. Preserved major intracranial flow-voids. Unremarkable orbital contents. No suspicious calvarial or skull base lesion evident. Small mucous retention cyst or polyp at the floor of the LEFT maxillary sinus. Negative for paranasal sinus fluid levels. Clear mastoid air spaces. Unremarkable scalp. IMPRESSION: Mild atrophy. No acute intracranial process evident.
[2017-02-08] MEDS: Mirtazapine TAB* 15 MG PO SCH (21:41)
[2017-02-09] MEDS: oxyCODONE/Acetamin 5/325 MG* TAB PO PRN ×3 (06:42→19:42)
[2017-02-09] MEDS: Carisoprodol TAB* 350 MG PO PRN ×3 (06:43→19:41)
[2017-02-09] MEDS: glipiZIDE TAB* 5 MG PO SCH ×2 (08:48→16:56)
[2017-02-09] MEDS: Folic Acid TAB* 1 MG DAILY PO SCH (08:48)
[2017-02-09] MEDS: metFORMIN* 1,000 MG TAB PO SCH ×2 (08:48→16:56)
[2017-02-09] MEDS: Vitamin THERAPEUTIC TAB PO SCH (08:48)
--- NOTE | 2017-02-09 13:54 | PN ---
MHU: Group Therapy Note - Service Type Service Type: [id number] Psychotherapy - Individual Psychotherapy Note: Gurinder declined an invitation to begin psychometric testing, citing poor sleep and back pain. He was cooperative with efforts to interview, describing his current circumstances and plans. Gurinder describes losing his savings to his estranged girlfriend, and does not believe she will cooperate with efforts to discuss finances with her. In fact she apparently has served him with an order of protection, which he feels she did secondary to her daughter's admonitions to do so. He is hopeful of returning to work in the [employer] business, as he has been for over 30 years. 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 Gurinder also cites having lost a substantial amount of money in trusting a friend's brother to manage his finances in remote history. Currently Gurinder is hopeful of establishing independent housing and attaining finances to buy a car, which he needs to work in the [employer] industry. He presents with good affect, and uses language well, and is clear and coherent in speech.
--- NOTE | 2017-02-09 13:56 | PN ---
MHU: Group Therapy Note - Service Type Service Type: [id number] Group Psychotherapy - Cognitive Behavioral Group Therapy ( CBT):Patient was attentive and participatory in CBT programming this morning, and remained in good behavioral control. Patient expressed positive insights regarding relevant treatment interventions and goals.
[2017-02-09] MEDS: Acetaminophen TAB* 325 MG PO PRN (14:27)
--- NOTE | 2017-02-09 15:55 | PN ---
Subjective - Subjective Service Type: 66289 Hosp care 15 min low complexity Subjective: The patient complains of pain in his neck and back of a chronic nature, requesting something additional for this. His affect and future-directedness remain improved. His sister and nephew are coming for a family meeting on February 15 and they are working with staff on finding him housing in the community. He continues to deny SI, stating that he looks forward to the "challenge of starting over." Objective - Appearance Appearance: Well Developed/Nourished Dysmorphic Features: No Hygiene: Normal Grooming: Fairly Well Kept - Behavior Psychomotor Activities: Normal Exhibits Abnormal Movement: No - Attitude and Relatedness Attitude and Relatedness: Cooperative Eye Contact: Fair - Speech Quality: Unpressured Latencies: Normal Quantity: Appropriate - Mood Patient's Decription of Mood: "Good" - Affect Observed Affect: Good Affect Consistent with: Euthymia - Thought Process Patient's Thought Process: Circumstantial Thought Content: No Passive Wish, No Suicidal Planning, No Homicidal Ideation, No Paranoid Ideation - Sensorium Experiencing Hallucinations: No, Sensorium is Clear Type of Hallucinations: Visual: No, Auditory: No, Command: No - Level of Consciousness Level of Consciousness: Alert Orientation: Yes Intact, Yes Orientated to Time, Yes Orientated to Place, Yes Orientated to Person - Impulse Control Impulse Control: Tenuous - Insight and Judgement Insight and Judgement: Fair - Group Participation Particating in Group Activities: Yes - Medication Management Medication Management Adherence: Yes Assessment - Assessment Merits Inpatient Hospitalization: For Immediate Safety, For Stabilization Inpatient DSM-IV Dx: MDD, single episode, severe without psychotic features Clinical Impression: 71 y.o. , white male with a history of chronic alcohol misuse brought in by police on legal status after cutting himself on both forearms in a suicide attempt and requiring 41 sutures. Plan - Plan Treatment Plan: Name: CORTEZ GAYTAN Birthdate: 1945 [id number] The patient appears to be improving. He is denying suicidal ideations and appears more future-oriented. He is working with his family and staff to find new housing in the community. Continue mirtazapine 15mg PO qhs. Continue to offer milieu care on a locked, secured setting. Family meeting with his sister, Karen, on February 15 for d/c planning. Continued Medication Management: Start Medication Medications: Current Medications Acetaminophen (Tylenol Tab*) 650 mg PO Q4H PRN PRN Reason: PAIN or TEMP > 101 F Last Admin: 02/09/17 14:27 Dose: 650 mg Al Hydrox/Mg Hydrox/Simethicone (Maalox Plus*) 30 ml PO Q2H PRN PRN Reason: PRN GASTRIC DISTRESS Carisoprodol (Soma Tab*) 350 mg PO Q6H PRN PRN Reason: PAIN Last Admin: 02/09/17 13:03 Dose: 350 mg Diclofenac Sodium (Voltaren Ec Tab*) 50 mg PO DAILY [facility] Folic Acid (Folvite Tab*) 1 mg PO DAILY [facility] Last Admin: 02/09/17 08:48 Dose: 1 mg Glipizide (Glucotrol Tab*) 5 mg PO 0900,1700 [facility] Last Admin: 02/09/17 08:48 Dose: 5 mg Metformin HCl (Glucophage*) 1,000 mg PO 0800,1700 [facility] Last Admin: 02/09/17 08:48 Dose: 1,000 mg Mirtazapine (Remeron Tab*) 15 mg PO BEDTIME [facility] Last Admin: 02/08/17 21:41 Dose: 15 mg Multivitamins (Theragran Tab*) 1 tab PO DAILY [facility] Last Admin: 02/09/17 08:48 Dose: 1 tab Oxycodone/Acetaminophen (Percocet 5/325 Tab*) 1 tab PO Q6H PRN PRN Reason: PAIN Last Admin: 02/09/17 13:03 Dose: 1 tab - Discharge Plan Discharge Plan: Inpatient Hospitalization
[2017-02-09] MEDS: Diclofenac Sodium EC TAB* 25 MG PO SCH (16:56)
[2017-02-09] MEDS: Mirtazapine TAB* 15 MG PO SCH (20:38)
[2017-02-10] MEDS: oxyCODONE/Acetamin 5/325 MG* TAB PO PRN ×3 (07:47→20:33)
[2017-02-10] MEDS: metFORMIN* 1,000 MG TAB PO SCH ×2 (07:47→16:40)
[2017-02-10] MEDS: Vitamin THERAPEUTIC TAB PO SCH (07:50)
[2017-02-10] MEDS: Folic Acid TAB* 1 MG DAILY PO SCH (07:50)
[2017-02-10] MEDS: glipiZIDE TAB* 5 MG PO SCH ×2 (07:50→16:41)
[2017-02-10] MEDS: Carisoprodol TAB* 350 MG PO PRN ×3 (07:50→20:32)
[2017-02-10] MEDS: Diclofenac Sodium EC TAB* 25 MG PO SCH (07:58)
[2017-02-10] MEDS: Acetaminophen TAB* 325 MG PO PRN (16:00)
[2017-02-10] MEDS: Mirtazapine TAB* 15 MG PO SCH (20:33)
[2017-02-11] MEDS: Vitamin THERAPEUTIC TAB PO SCH (08:20)
[2017-02-11] MEDS: Folic Acid TAB* 1 MG DAILY PO SCH (08:20)
[2017-02-11] MEDS: Diclofenac Sodium EC TAB* 25 MG PO SCH (08:20)
[2017-02-11] MEDS: metFORMIN* 1,000 MG TAB PO SCH ×2 (08:20→16:50)
[2017-02-11] MEDS: glipiZIDE TAB* 5 MG PO SCH ×2 (08:20→16:50)
[2017-02-11] MEDS: oxyCODONE/Acetamin 5/325 MG* TAB PO PRN ×3 (08:22→21:12)
[2017-02-11] MEDS: Carisoprodol TAB* 350 MG PO PRN ×3 (08:22→21:12)
[2017-02-11] MEDS: Acetaminophen TAB* 325 MG PO PRN (16:49)
[2017-02-11] MEDS ORDERED: Ibuprofen TAB* 600 MG ONE (19:08)
[2017-02-11] MEDS: Mirtazapine TAB* 15 MG PO SCH (21:11)
[2017-02-12] MEDS: Vitamin THERAPEUTIC TAB PO SCH (08:26)
[2017-02-12] MEDS: Folic Acid TAB* 1 MG DAILY PO SCH (08:26)
[2017-02-12] MEDS: metFORMIN* 1,000 MG TAB PO SCH ×2 (08:26→17:30)
[2017-02-12] MEDS: Diclofenac Sodium EC TAB* 25 MG PO SCH (08:26)
[2017-02-12] MEDS: glipiZIDE TAB* 5 MG PO SCH ×2 (08:26→17:30)
[2017-02-12] MEDS: Carisoprodol TAB* 350 MG PO PRN ×3 (08:30→20:27)
[2017-02-12] MEDS: oxyCODONE/Acetamin 5/325 MG* TAB PO PRN ×3 (08:32→20:28)
[2017-02-12] MEDS: Ibuprofen TAB* 600 MG PO PRN (13:14)
--- NOTE | 2017-02-12 16:47 | PN ---
Subjective - Subjective Service Type: 37361 Hosp care 15 min low complexity Subjective: Patient is euthymic and pleasant. He is talkative and pleasant with staff and peers. He denies SI and is contemplating various housing options. He is interested in subsidized housing and wants to be as independent as possible. According to staff he has been compliant with medications and meals. Patient visible by this communications writer throughout the day. He was napping during attempt to interview. Objective - Appearance Appearance: Well Developed/Nourished Dysmorphic Features: No Hygiene: Normal Grooming: Fairly Well Kept - Behavior Psychomotor Activities: Normal Exhibits Abnormal Movement: No - Attitude and Relatedness Attitude and Relatedness: Cooperative Eye Contact: Good - Speech Quality: Unpressured Latencies: Normal Quantity: Copious - Affect Observed Affect: Good Affect Consistent with: Euthymia - Thought Process Patient's Thought Process: Coherent, Goal Directed, Impoverished Thought Content: No Passive Wish, No Suicidal Planning, No Homicidal Ideation, No Paranoid Ideation - Sensorium Experiencing Hallucinations: No, Sensorium is Clear Type of Hallucinations: Visual: No, Auditory: No, Command: No - Level of Consciousness Level of Consciousness: Alert Orientation: Yes Intact, Yes Orientated to Time, Yes Orientated to Place, Yes Orientated to Person - Impulse Control Impulse Control: Tenuous - Insight and Judgement Insight and Judgement: Fair - Group Participation Particating in Group Activities: Yes - Medication Management Medication Management Adherence: Yes Assessment - Assessment Merits Inpatient Hospitalization: For Immediate Safety, For Stabilization, Diagnosis Determination, For Discharge Planning, Pending Safe DC Plan Inpatient DSM-IV Dx: MDD, single episode, severe without psychotic features Clinical Impression: Gurinder is a 71yo male, , who was brought in by police after cutting himself in an attempt to suicide. He required 41 sutures. Since then, his partner has broken up with him and he is now without housing. Plan - Plan Treatment Plan: Name: GURINDER GAYTAN Birthdate: 1945 [id number] Continue medications as previously prescribed. Continue milieu and unit programming. Assess for safety, mood and thought content. Discharge planning to include housing and outpatient services. Continued Medication Management: Consider Medication Medications: Current Medications Acetaminophen (Tylenol Tab*) 650 mg PO Q4H PRN PRN Reason: PAIN or TEMP > 101 F Last Admin: 02/11/17 16:49 Dose: 650 mg Al Hydrox/Mg Hydrox/Simethicone (Maalox Plus*) 30 ml PO Q2H PRN PRN Reason: PRN GASTRIC DISTRESS Carisoprodol (Soma Tab*) 350 mg PO Q6H PRN PRN Reason: PAIN Last Admin: 02/12/17 14:14 Dose: 350 mg Diclofenac Sodium (Voltaren Ec Tab*) 50 mg PO DAILY [facility] Last Admin: 02/12/17 08:26 Dose: 50 mg Folic Acid (Folvite Tab*) 1 mg PO DAILY [facility] Last Admin: 02/12/17 08:26 Dose: 1 mg Glipizide (Glucotrol Tab*) 5 mg PO 0900,1700 [facility] Last Admin: 02/12/17 08:26 Dose: 5 mg Ibuprofen (Motrin Tab*) 600 mg PO Q6H PRN PRN Reason: PAIN Last Admin: 02/12/17 13:14 Dose: 600 mg Metformin HCl (Glucophage*) 1,000 mg PO 0800,1700 [facility] Last Admin: 02/12/17 08:26 Dose: 1,000 mg Mirtazapine (Remeron Tab*) 15 mg PO BEDTIME [facility] Last Admin: 02/11/17 21:11 Dose: 15 mg Multivitamins (Theragran Tab*) 1 tab PO DAILY [facility] Last Admin: 02/12/17 08:26 Dose: 1 tab Oxycodone/Acetaminophen (Percocet 5/325 Tab*) 1 tab PO Q6H PRN PRN Reason: PAIN Last Admin: 02/12/17 14:14 Dose: 1 tab - Discharge Plan Discharge Plan: Outpatient Follow Up Outpatient Program: [facility]
[2017-02-12] MEDS: Mirtazapine TAB* 15 MG PO SCH (21:02)
[2017-02-13] MEDS: Vitamin THERAPEUTIC TAB PO SCH (07:34)
[2017-02-13] MEDS: metFORMIN* 1,000 MG TAB PO SCH ×2 (07:34→17:26)
[2017-02-13] MEDS: Folic Acid TAB* 1 MG DAILY PO SCH (07:35)
[2017-02-13] MEDS: glipiZIDE TAB* 5 MG PO SCH ×2 (07:35→17:26)
[2017-02-13] MEDS: Carisoprodol TAB* 350 MG PO PRN ×3 (07:35→21:51)
[2017-02-13] MEDS: Diclofenac Sodium EC TAB* 25 MG PO SCH (07:36)
[2017-02-13] MEDS: oxyCODONE/Acetamin 5/325 MG* TAB PO PRN ×3 (07:36→21:14)
[2017-02-13] MEDS: Ibuprofen TAB* 600 MG PO PRN ×3 (10:28→21:14)
--- NOTE | 2017-02-13 13:03 | PN ---
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 He also expresses desire to discontinue opiate pain medication with an outpatient provider. He is wondering if use and overuse of pain medication was a factor in his suicide attempt. He denies over use of alcohol and states that he has a martini some nights. He considers himself a "social drinker" and thinks that his ex-girflriend gave the wrong impression about his alcohol use. He denies resentment or other feelings about his ex-girlfriend. He states that he is ready "to move on." Objective - Appearance Appearance: Well Developed/Nourished Dysmorphic Features: No Hygiene: Normal Grooming: Well Kept - Behavior Psychomotor Activities: Normal Exhibits Abnormal Movement: No - Attitude and Relatedness Attitude and Relatedness: Cooperative Eye Contact: Good - Speech Quality: Unpressured Latencies: Normal Quantity: Appropriate - Mood Patient's Decription of Mood: "Good" - Affect Observed Affect: Good Affect Consistent with: Euthymia - Thought Process Patient's Thought Process: Coherent, Goal Directed Thought Content: No Passive Wish, No Suicidal Planning, No Homicidal Ideation, No Paranoid Ideation - Sensorium Experiencing Hallucinations: No, Sensorium is Clear Type of Hallucinations: Visual: No, Auditory: No, Command: No - Level of Consciousness Level of Consciousness: Alert Orientation: Yes Intact, Yes Orientated to Time, Yes Orientated to Place, Yes Orientated to Person - Impulse Control Impulse Control: Intact - Insight and Judgement Insight and Judgement: Good - Group Participation Particating in Group Activities: Yes - Medication Management Medication Management Adherence: Yes Assessment - Assessment Merits Inpatient Hospitalization: Pending Safe DC Plan Inpatient DSM-IV Dx: MDD, single episode, severe without psychotic features Clinical Impression: Gurinder is a 71yo male, , who was brought in by police after cutting himself in an attempt to suicide. He required 41 sutures. Since then, his partner has broken up with him and he is now without housing. Plan - Plan Treatment Plan: Name: GURINDER GAYTAN Birthdate: 1945 [id number] Continue medications as previously prescribed. Continue milieu and unit programming. Assess for safety, mood and thought content. Discharge planning to include housing and outpatient services. Family meeting is planned for . Continued Medication Management: Different Medication Medications: Current Medications Acetaminophen (Tylenol Tab*) 650 mg PO Q4H PRN PRN Reason: PAIN or TEMP > 101 F Last Admin: 02/11/17 16:49 Dose: 650 mg Al Hydrox/Mg Hydrox/Simethicone (Maalox Plus*) 30 ml PO Q2H PRN PRN Reason: PRN GASTRIC DISTRESS Carisoprodol (Soma Tab*) 350 mg PO Q6H PRN PRN Reason: PAIN Last Admin: 02/13/17 07:35 Dose: 350 mg Diclofenac Sodium (Voltaren Ec Tab*) 50 mg PO DAILY [facility] Last Admin: 02/13/17 07:36 Dose: 50 mg Folic Acid (Folvite Tab*) 1 mg PO DAILY [facility] Last Admin: 02/13/17 07:35 Dose: 1 mg Glipizide (Glucotrol Tab*) 5 mg PO 0900,1700 [facility] Last Admin: 02/13/17 07:35 Dose: 5 mg Ibuprofen (Motrin Tab*) 600 mg PO Q6H PRN PRN Reason: PAIN Last Admin: 02/13/17 10:28 Dose: 600 mg Metformin HCl (Glucophage*) 1,000 mg PO 0800,1700 [facility] Last Admin: 02/13/17 07:34 Dose: 1,000 mg Mirtazapine (Remeron Tab*) 15 mg PO BEDTIME [facility] Last Admin: 02/12/17 21:02 Dose: 15 mg Multivitamins (Theragran Tab*) 1 tab PO DAILY [facility] Last Admin: 02/13/17 07:34 Dose: 1 tab Oxycodone/Acetaminophen (Percocet 5/325 Tab*) 1 tab PO Q6H PRN PRN Reason: PAIN Last Admin: 02/13/17 07:36 Dose: 1 tab - Discharge Plan Discharge Plan: Outpatient Follow Up Outpatient Program: pending housing area
[2017-02-13] MEDS: Acetaminophen TAB* 325 MG PO PRN (14:33)
[2017-02-13] MEDS: Mirtazapine TAB* 15 MG PO SCH (21:12)
[2017-02-14] MEDS: Carisoprodol TAB* 350 MG PO PRN ×3 (07:26→20:14)
[2017-02-14] MEDS: glipiZIDE TAB* 5 MG PO SCH ×2 (07:27→17:31)
[2017-02-14] MEDS: metFORMIN* 1,000 MG TAB PO SCH ×2 (07:27→17:31)
[2017-02-14] MEDS: oxyCODONE/Acetamin 5/325 MG* TAB PO PRN ×3 (07:27→20:13)
[2017-02-14] MEDS: Vitamin THERAPEUTIC TAB PO SCH (07:27)
[2017-02-14] MEDS: Folic Acid TAB* 1 MG DAILY PO SCH (07:28)
[2017-02-14] MEDS: Diclofenac Sodium EC TAB* 25 MG PO SCH (07:28)
[2017-02-14] MEDS: Ibuprofen TAB* 600 MG PO PRN ×2 (09:37→15:32)
--- NOTE | 2017-02-14 11:54 | PN ---
MHU: Group Therapy Note - Service Type Service Type: [id number] Group Psychotherapy - Cognitive Behavioral Group Therapy ( CBT):Patient was attentive and participatory in CBT programming this morning, and remained in good behavioral control. Patient expressed positive insights regarding relevant treatment interventions and goals.
--- NOTE | 2017-02-14 13:11 | PN ---
Subjective - Subjective Subjective: Patient continues to be pleasant and sociable with staff and peers. He is participating in unit programming and is medication compliant. He reports looking forward to being able to stay with his mother and help her until he has his own housing. He denies SI or depressed mood. Objective - Appearance Appearance: Well Developed/Nourished Dysmorphic Features: No Hygiene: Normal Grooming: Well Kept - Behavior Psychomotor Activities: Normal Exhibits Abnormal Movement: No - Attitude and Relatedness Attitude and Relatedness: Cooperative Eye Contact: Good - Speech Quality: Unpressured Latencies: Normal Quantity: Appropriate - Mood Patient's Decription of Mood: "Good" - Affect Observed Affect: Good Affect Consistent with: Euthymia - Thought Process Patient's Thought Process: Coherent, Goal Directed Thought Content: No Passive Wish, No Suicidal Planning, No Homicidal Ideation, No Paranoid Ideation - Sensorium Experiencing Hallucinations: No, Sensorium is Clear Type of Hallucinations: Visual: No, Auditory: No, Command: No - Level of Consciousness Level of Consciousness: Alert Orientation: No Intact, No Orientated to Time, No Orientated to Place, No Orientated to Person - Impulse Control Impulse Control: Intact - Insight and Judgement Insight and Judgement: Good - Group Participation Particating in Group Activities: Yes - Medication Management Medication Management Adherence: Yes Assessment - Assessment Merits Inpatient Hospitalization: For Discharge Planning Inpatient DSM-IV Dx: MDD, single episode, severe without psychotic features Clinical Impression: Gurinder is a 71yo male, , who was brought in by police after cutting himself in an attempt to suicide. He required 41 sutures. Since then, his partner has broken up with him and he is now without housing. His family is assisting in identifying options for him. Plan - Plan Treatment Plan: Name: GURINDER GAYTAN Birthdate: 1945 [id number] Continue medications as previously prescribed. Continue milieu and unit programming. Assess for safety, mood and thought content. Discharge planning to include housing and outpatient services. Family meeting is planned for . Continued Medication Management: Different Medication Medications: Current Medications Acetaminophen (Tylenol Tab*) 650 mg PO Q4H PRN PRN Reason: PAIN or TEMP > 101 F Last Admin: 02/13/17 14:33 Dose: 650 mg Al Hydrox/Mg Hydrox/Simethicone (Maalox Plus*) 30 ml PO Q2H PRN PRN Reason: PRN GASTRIC DISTRESS Carisoprodol (Soma Tab*) 350 mg PO Q6H PRN PRN Reason: PAIN Last Admin: 02/14/17 07:26 Dose: 350 mg Diclofenac Sodium (Voltaren Ec Tab*) 50 mg PO DAILY [facility] Last Admin: 02/14/17 07:28 Dose: 50 mg Folic Acid (Folvite Tab*) 1 mg PO DAILY [facility] Last Admin: 02/14/17 07:28 Dose: 1 mg Glipizide (Glucotrol Tab*) 5 mg PO 0900,1700 [facility] Last Admin: 02/14/17 07:27 Dose: 5 mg Ibuprofen (Motrin Tab*) 600 mg PO Q6H PRN PRN Reason: PAIN Last Admin: 02/14/17 09:37 Dose: 600 mg Metformin HCl (Glucophage*) 1,000 mg PO 0800,1700 [facility] Last Admin: 02/14/17 07:27 Dose: 1,000 mg Mirtazapine (Remeron Tab*) 15 mg PO BEDTIME [facility] Last Admin: 02/13/17 21:12 Dose: 15 mg Multivitamins (Theragran Tab*) 1 tab PO DAILY [facility] Last Admin: 02/14/17 07:27 Dose: 1 tab Oxycodone/Acetaminophen (Percocet 5/325 Tab*) 1 tab PO Q6H PRN PRN Reason: PAIN Last Admin: 02/14/17 07:27 Dose: 1 tab - Discharge Plan Discharge Plan: Outpatient Follow Up Outpatient Program: [facility]
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
[2017-02-14] MEDS: Mirtazapine TAB* 15 MG PO SCH (21:19)
[2017-02-15] MEDS: oxyCODONE/Acetamin 5/325 MG* TAB PO PRN ×3 (06:27→19:50)
[2017-02-15] MEDS: Carisoprodol TAB* 350 MG PO PRN ×3 (06:28→19:51)
[2017-02-15] MEDS: Vitamin THERAPEUTIC TAB PO SCH (08:58)
[2017-02-15] MEDS: glipiZIDE TAB* 5 MG PO SCH ×2 (08:58→17:11)
[2017-02-15] MEDS: Diclofenac Sodium EC TAB* 25 MG PO SCH (08:58)
[2017-02-15] MEDS: metFORMIN* 1,000 MG TAB PO SCH ×2 (08:58→17:11)
[2017-02-15] MEDS: Folic Acid TAB* 1 MG DAILY PO SCH (08:58)
--- NOTE | 2017-02-15 13:16 | PN ---
[facility]: Group Therapy Note - Service Type Service Type: 15704 Group Psychotherapy - Cognitive Behavioral Group Therapy ( CBT):Patient was attentive and participatory in CBT programming this morning, and remained in good behavioral control. Patient expressed positive insights regarding relevant treatment interventions and goals.
[2017-02-15] MEDS: Ibuprofen TAB* 600 MG PO PRN ×2 (14:00→22:31)
--- NOTE | 2017-02-15 14:01 | PN ---
Subjective - Subjective Subjective: Patient continues to be present in milieu and groups/meals. He is interactive with staff and peers. Dale looks forward to discharge and rebuilding his "new life." During family meeting, Dale expressed readiness to discharge and to stay with his mother until permanent housing is established. He is expecting to help cook and care for his mother while there. Dale states concern about access to medications and health care. He was notified of plan to be given 14-day supply of medications and appts set up by demand plannerBrandi. He and his family were instructed to limit his access to medications. Dale denies risk for self harm. He expresses resentment towards ex-girlfriend, Sinai. His nephew and sister noted to give solid advice to refrain from interactions with her, unless there is police presence. Objective - Appearance Appearance: Well Developed/Nourished Dysmorphic Features: No Hygiene: Normal Grooming: Well Kept - Behavior Psychomotor Activities: Normal Exhibits Abnormal Movement: No - Attitude and Relatedness Attitude and Relatedness: Cooperative Eye Contact: Good - Speech Quality: Unpressured Latencies: Normal Quantity: Appropriate - Mood Patient's Decription of Mood: "Good" - Affect Observed Affect: Non-labile Affect Consistent with: Euthymia - Thought Process Patient's Thought Process: Coherent, Goal Directed Thought Content: No Passive Wish, No Suicidal Planning, No Homicidal Ideation, No Paranoid Ideation - Sensorium Experiencing Hallucinations: No, Sensorium is Clear Type of Hallucinations: Visual: No, Auditory: No, Command: No - Level of Consciousness Level of Consciousness: Alert Orientation: No Intact, No Orientated to Time, No Orientated to Place, No Orientated to Person - Impulse Control Impulse Control: Intact - Insight and Judgement Insight and Judgement: Fair - Group Participation Particating in Group Activities: Yes - Medication Management Medication Management Adherence: Yes Assessment - Assessment Merits Inpatient Hospitalization: For Immediate Safety, Pending Safe DC Plan Inpatient DSM-IV Dx: MDD, single episode, severe without psychotic features Clinical Impression: Gurinder is a 71yo male, , who was brought in by police after cutting himself in an attempt to suicide. He required 41 sutures. Since then, his partner has broken up with him and he is now without housing. His family is assisting in identifying options for him. Plan - Plan Treatment Plan: Name: GURINDER GAYTAN Birthdate: 1945 [id number] Continue medications as previously prescribed. Continue milieu and unit programming. Assess for safety, mood and thought content. Discharge planning to include housing and outpatient services. Family meeting is planned for . Continued Medication Management: Different Medication Medications: Current Medications Acetaminophen (Tylenol Tab*) 650 mg PO Q4H PRN PRN Reason: PAIN or TEMP > 101 F Last Admin: 02/13/17 14:33 Dose: 650 mg Al Hydrox/Mg Hydrox/Simethicone (Maalox Plus*) 30 ml PO Q2H PRN PRN Reason: PRN GASTRIC DISTRESS Carisoprodol (Soma Tab*) 350 mg PO Q6H PRN PRN Reason: PAIN Last Admin: 02/15/17 12:33 Dose: 350 mg Diclofenac Sodium (Voltaren Ec Tab*) 50 mg PO DAILY [facility] Last Admin: 02/15/17 08:58 Dose: 50 mg Folic Acid (Folvite Tab*) 1 mg PO DAILY [facility] Last Admin: 02/15/17 08:58 Dose: 1 mg Glipizide (Glucotrol Tab*) 5 mg PO 0900,1700 [facility] Last Admin: 02/15/17 08:58 Dose: 5 mg Ibuprofen (Motrin Tab*) 600 mg PO Q6H PRN PRN Reason: PAIN Last Admin: 02/14/17 15:32 Dose: 600 mg Metformin HCl (Glucophage*) 1,000 mg PO 0800,1700 [facility] Last Admin: 02/15/17 08:58 Dose: 1,000 mg Mirtazapine (Remeron Tab*) 15 mg PO BEDTIME [facility] Last Admin: 02/14/17 21:19 Dose: 15 mg Multivitamins (Theragran Tab*) 1 tab PO DAILY [facility] Last Admin: 02/15/17 08:58 Dose: 1 tab Oxycodone/Acetaminophen (Percocet 5/325 Tab*) 1 tab PO Q6H PRN PRN Reason: PAIN Last Admin: 02/15/17 12:35 Dose: 1 tab - Discharge Plan Discharge Plan: Outpatient Follow Up Outpatient Program: [facility]
[2017-02-15] MEDS: Mirtazapine TAB* 15 MG PO SCH (22:29)
[2017-02-16] MEDS: Vitamin THERAPEUTIC TAB PO SCH ×2 (06:55→08:15)
[2017-02-16] MEDS: metFORMIN* 1,000 MG TAB PO SCH (06:55)
[2017-02-16] MEDS: oxyCODONE/Acetamin 5/325 MG* TAB PO PRN (06:55)
[2017-02-16] MEDS: Diclofenac Sodium EC TAB* 25 MG PO SCH ×2 (06:55→08:15)
[2017-02-16] MEDS: Carisoprodol TAB* 350 MG PO PRN (06:55)
[2017-02-16] MEDS: Folic Acid TAB* 1 MG DAILY PO SCH ×2 (06:55→08:15)
[2017-02-16] MEDS: glipiZIDE TAB* 5 MG PO SCH ×2 (06:55→08:15)
[2017-02-16 08:18] VITALS: BP 156/85
--- NOTE | 2017-02-19 10:55 | DS ---
CC: [facility]; Dr. [facility] DATE OF ADMISSION: 01/31/2017. DATE OF DISCHARGE: 02/16/2017. SUPERVISING PSYCHIATRIST: Dr. Etienne Ballard (dictated by TYLER Sanchez). DISCHARGE DIAGNOSES: AXIS I: Major depressive disorder, moderate, recurrent; alcohol use disorder. AXIS II: Deferred. AXIS III: Diabetes mellitus type 2, hypertension, back pain. AXIS IV: Moderate stressors related to recent break-up and financial strain. AXIS V: 50. CONDITION AT THE TIME OF DISCHARGE: Improved. The patient reports much improvement in mood and den ies suicidal ideation. He states that his previous relationship ending has given him a chance to st art anew. 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 He is comfortable with staying with his mother temporarily and being able to assist her as she is e lderly. His sister and nephew visited and they were in agreement with plan. They are going to help with transportation by giving him a car to use. They are also assisting him in helping with Medica re and Medicaid services. The patient denies he is at risk for overuse of alcohol or pain medicatio ns. He states that he only has one drink usually at a time. He states that his alcohol use was exa ggerated at the time of admission. He identifies that when he is more active, he needs less pain me dication. The family is concerned that he minimizes his alcohol and pain medication use. We discus sed allowing patient to have approximately only one week of supply of medications at a time. The willis sams reports willingness to follow-up with his medical diagnoses and discharge planning initiated p [facility] care provider for him, as well as outpatient mental health services. MENTAL STATUS EXAM: The patient is a short-statured, moderate-built, 71-year-old man. He appears h is stated age. He is pleasant and cooperative. He has been interactive with staff and peers. He i s jovial at times. He is dressed in his own clothing and has adequate ADL's. He is alert and orien cami times three. His affect is full range. His mood is good. His speech is normal rate and rhythm . His thought process is linear and goal-directed. Thought content is negative for SI, HI or . He denies AH or VH. He denies withdrawal symptoms and has not scored on the WA protocol for quite some time. Insight is fair. He expressed trying to get in contact with his girlfriend. His family members have discouraged him strongly to do so. Judgment is fair to good. He is receptive to sugg estions of staff. Fund of knowledge is adequate. [facility] Instructions were given to the patient. MEDICATIONS: Noncontrolled prescriptions were e-scripted to [facility] in [place], [place]. The se included: 1. Diclofenac 50 mg p.o. daily prn, quantity 14. 2. Mirtazapine 15 mg p.o. at bedtime, quantity 14. 3. Glipizide 5 mg p.o. b.i.d., quantity 28. 4. Metformin 1000 mg p.o. b.i.d., quantity 28. He was given handwritten prescriptions of Percocet one tab p.o. b.i.d. prn pain, quantity 28 and Perry a 350 mg one tab p.o. t.i.d. prn pain, quantity 21. He was instructed to use these sparingly. DIET: Diabetic diet. ACTIVITY: Ambulation as tolerated. Tobacco cessation declined by patient. There are no pending labs or diagnostic studies at the time of discharge. As stated above, he was consulted by psychologist, Dr. Ramos, in regards to cognitive testing. HOSPITAL COURSE: Reason for admission: The patient was admitted status post suicide attempt after cutting himself on both arms and resulting in need of 41 sutures. This was in the context of conflic t with his girlfriend and he called her on Sunday the telling her that he was going to kill himself to give her the money from the life insurance policy. She called the police who found the p atient after his suicide attempt and he was brought in by police on 941 status. Psychiatric treatmen t was rendered. The patient was admitted to the Behavioral Health Services Unit and he was placed o n 15 minute checks for safety. He was monitored closely by staff and he was placed on a WA protoco l for alcohol withdrawal symptoms. He diabetes and chronic pain were treated with his outpatient me dication regimen. While he was hospitalized, his girlfriend notified staff that she was going to be leaving him and placed an order of protection. The patient was started on Mirtazapine for sleep and antidepressant therapy. Throughout the hospitalization, he was more interactive and participatory. His affect bright and his insight appeared to improve and he on longer expressed suicidal ideation . His sister and nephew were involved in discharge planning and were very instrumental in identifyi ng resources for him. It was determined that he could stay with his mother temporarily and indefini tively until he secured his own housing. The patient was decreased to q.30 minute observation and a llowed to participate in staff pass. Discharge planning identified outpatient resources for him near his mother. The patient continued t o deny suicidal ideation and expressed eagerness for discharge when a plan was identified. He was s afe on all checks and seemingly agreeable to continue with outpatient services. The patient was giv en appointments at [facility] and Dr. Miranda through [facility]. The patient was discharged with his sister and her son, his nephew, by nursing staff. The patient and family w ere encouraged to call the train planner or myself for any questions regarding planning after hermelinda knight. BRYAN TA NP [id number]/[facility] #: [id number]
== END 2017-02-16 12:30 | disposition home or self-care (01) | DRG 876 ==
LOC: ED 15:25 → BSU 22:20
PROVIDERS: ADMIT Psychiatry & Neurology Psychiatry; ATTEND Psychiatry & Neurology Psychiatry
PROC: 0XQFXZZ Repair Left Lower Arm, External Approach (ICD-10-PCS; principal; 2017-01-31)
PROC: 0XQDXZZ Repair Right Lower Arm, External Approach (ICD-10-PCS; 2017-01-31)
PROC: GZHZZZZ Group Psychotherapy (ICD-10-PCS; 2017-02-06)
DX: F32.2 Major depressive disorder, single episode, severe without psychotic features (principal); I10 Essential (primary) hypertension; E11.9 Type 2 diabetes mellitus without complications; F51.04 Psychophysiologic insomnia; F12.90 Cannabis use, unspecified, uncomplicated; K40.90 Unilateral inguinal hernia, without obstruction or gangrene, not specified as recurrent; G89.29 Other chronic pain; M54.9 Dorsalgia, unspecified; M54.2 Cervicalgia; K02.9 Dental caries, unspecified; R55 Syncope and collapse; S61.512A Laceration without foreign body of left wrist, initial encounter; S61.511A Laceration without foreign body of right wrist, initial encounter; X78.1XXA Intentional self-harm by knife, initial encounter; R40.2412 Glasgow coma scale score 13-15, at arrival to emergency department; Z87.891 Personal history of nicotine dependence; Z72.89 Other problems related to lifestyle; Y92.009 Unspecified place in unspecified non-institutional (private) residence as the place of occurrence of the external cause
CPT/HCPCS: 36415; 70551; 80053; 80307; 80320; 80329; 81003; 84443; 85025; 90715; 90853; 93005; 96102; 99222; 99231; 99238; A9270-GY; G0480; J2001; J3411